=== PATIENT | female | born 1970 | race Caucasian/White ===

== ENCOUNTER 2025-01-08 11:53 | Observation (INO) | payer OTHER ==
[2025-01-08] MEDS ORDERED: LORazepam 1 MG/0.5 ML VIAL IV PRN ×2 (12:31)
--- NOTE | 2025-01-08 12:38 | ED ---
General Adult HPI - General Chief complaint: Alcohol Stated complaint: ABD Pain/intoxicated Time Seen by Provider: 01/08/25 12:03 Source: EMS Mode of arrival: EMS Limitations: no limitations - History of Present Illness Initial comments: Dictation was produced using [employer] dictation software. please excuse any grammatical, word or spelling errors. Chief Complaint: 54-year-old female from [place] for alcohol detoxification History of Present Illness: Patient 54-year-old alcoholic female drinks approximately 1 pint of liquor daily. States her last alcohol intake was 8 AM this morning. She tried to check in at [facility] and was refused due to high levels of alcohol. She states that she did complain of abdominal pain. States that she started to feel little antsy and needs to drink. The ROS documented in this emergency department record has been reviewed and confirmed by me. Those systems with pertinent positive or negative responses have been documented in the HPI. All other systems are other negative and/or noncontributory. - Related Data Allergies Allergy/AdvReac Type Severity Reaction Status Date / Time No Known Allergies Allergy Verified 01/08/25 12:01 Review of Systems ROS Statement: Those systems with pertinent positive or pertinent negative responses have been documented in the HPI. ROS Other: All systems not noted in ROS Statement are negative. Past Medical History Past Medical History: Unable to Obtain History of Any Multi-Drug Resistant Organisms: Unobtainable Past Surgical History: Unable to Obtain Smoking Status: Unknown if ever smoked Past Alcohol Use History: Unable to Obtain Past Drug Use History: Unable to Obtain General Exam - General Exam Comments Initial Comments: PHYSICAL EXAM: General Impression: Alert and oriented x3, not in acute distress HEENT: Normocephalic atraumatic, extra-ocular movements intact, pupils equal and reactive to light bilaterally, mucous membranes moist. Cardiovascular: Heart regular rate and rhythm Chest: Able to complete full sentences, no retractions, no tachypnea Abdomen: abdomen soft, non-tender, non-distended, no organomegaly Musculoskeletal: Pulses present and equal in all extremities, no peripheral edema Motor: no focal deficits noted Neurological: CN II-XII grossly intact, no focal motor or sensory deficits noted Skin: Intact with no visualized rashes Psych: Normal affect and mood Limitations: no limitations Course Vital Signs 01/08/25 01/08/25 11:55 13:58 Temperature 97.9 F Pulse Rate 87 102 H Respiratory 18 18 Rate Blood Pressure 115/63 120/69 O2 Sat by Pulse 97 90 L Oximetry EKG Findings - EKG Comments: EKG Findings:: My EKG interpretation: Ventricular rate 81, sinus rhythm, TX interval 153, QRS 84, QTc 418. No TX prolongation, no QTC prolongation, no ST or T-wave changes noted. Overall, this EKG is unremarkable Medical Decision Making - Medical Decision Making Was pt. sent in by a medical professional or institution (, PA, FUR WEIGHER, urgent care, hospital, or [facility]...) When possible be specific @ -No Did you speak to anyone other than the patient for history (EMS, parent, family, police, friend...)? What history was obtained from this source @ -No Did you review nursing and triage notes (agree or disagree)? Why? @ -I reviewed and agree with nursing and triage notes Were old charts reviewed (outside hosp., previous admission, EMS record, old EKG, old radiological studies, urgent care reports/EKG's, [facility] records)? Report findings @ -No old charts were reviewed Differential Diagnosis (chest pain, altered mental status, abdominal pain women, abdominal pain men, vaginal bleeding, musculoskeletal, weakness, fever, dyspnea, syncope, headache, dizziness, GI bleed, back pain, seizure, CVA, palpatations, mental health)? @ -Not applicable EKG interpreted by me (3pts min.). @ -None done X-rays interpreted by me (1pt min.). @ -None done CT interpreted by me (1pt min.). @ -None done U/S interpreted by me (1pt. min.). @ -None done What testing was considered but not performed or refused? (CT, X-rays, U/S, labs)? Why? @ -None What meds were considered but not given or refused? Why? @ -None Was smoking cessation discussed for >3mins.? @ -No Were there social determinants of health that impacted care today? How? (Homelessness, low income, unemployed, alcoholism, drug addiction, transportation, low edu. Level, literacy, decrease access to med. care, alf, rehab)? @ -No Was there de-escalation of care discussed even if they declined (Discuss DNR or withdrawal of care, Hospice)? DNR status @ -No What co-morbidities impacted this encounter? (DM, HTN, Smoking, COPD, CAD, Cancer, CVA, ARF, Chemo, Hep., AIDS, mental health diagnosis, sleep apnea, morbid obesity)? @ -None Was patient admitted / discharged? Hospital course, mention meds given and route, prescriptions, significant lab abnormalities, going to OR and other pertinent info. @ -54-year-old female presents to the emergency department for inpatient EtOH withdrawal treatment. Vital signs stable. Patient last alcohol intake was 8 AM. Laboratory evaluation obtained. Lactic acid was 3.3 alcohol of 298. Patient given some Ativan. Patient alcohol intoxicated. Patient will be admitted for inpatient alcohol withdrawal treatment. Case discussed with hospitalist for admission. Did you discuss the management of the patient with other professionals (professionals i.e. , PA, FUR WEIGHER, lab, RT, psych nurse, social research assistant, department traffic freight router, teacher, vessel traffic officer, case sealer)? Give summary @ -See above Was critical care preformed (if so, how long)? @ -No Undiagnosed new problem with uncertain prognosis? @ -No Drug Therapy requiring intensive monitoring for toxicity (Heparin, Nitro, Insulin, Cardizem)? @ -No Were any procedures done? @ -No Diagnosis/symptom? Acute, or Chronic, or Acute on Chronic? Uncomplicated (without systemic symptoms) or Complicated (systemic symptoms)? @ -Alcohol intoxication, alcohol withdrawal Side effects of treatment? @ -No Exacerbation, Progression, or Severe Exacerbation? @ -No Poses a threat to life or bodily function? How? (Chest pain, USA, AL, pneumonia, PE, COPD, DKA, ARF, appy, cholecystitis, CVA, Diverticulitis, Homicidal, Suicidal, threat to staff... and all critical care pts) @ -yes - Lab Data Result diagrams: 01/08/25 12:30 01/08/25 12:30 Lab Results 01/08/25 01/08/25 01/08/25 Range/Units 12:30 12:30 12:30 WBC 5.10 (4.50-10.00) 10*3/uL RBC 4.15 (4.10-5.20) 10*6/uL Hgb 13.5 (12.0-15.0) g/dL Hct 38.4 (37.2-46.3) % MCV 92.5 (80.0-97.0) fL MCH 32.5 H (27.0-32.0) pg MCHC 35.2 (32.0-37.0) g/dL Plt Count (140-440) 10*3/uL MPV 9.2 L (9.5-12.2) fL Immature Gran % (Auto) 0.4 % Neutrophils % 54.8 % Lymphocytes % 37.5 % Monocytes % 6.1 % Eosinophils % 0.4 % Basophils % 0.8 % Immature Gran # 0.02 (0.00-0.04) 10*3/uL Neutrophils # 2.80 (1.80-7.70) 10*3/uL Lymphocytes # 1.91 (0.90-5.00) 10*3/uL Monocytes # 0.31 (0.20-1.00) 10*3/uL Eosinophils # 0.02 L (0.04-0.35) 10*3/uL Basophils # 0.04 (0.00-0.10) 10*3/uL Manual Slide Review Performed Immature Plt Fraction 2.3 (1.1-6.1) % RBC Morphology Normal Sodium 143 (137-145) mmol/L Potassium 3.6 (3.5-5.1) mmol/L Chloride 103 (98-107) mmol/L Carbon Dioxide 24 (22-30) mmol/L Anion Gap 16 mmol/L BUN 9 (7-17) mg/dL Creatinine 0.63 (0.52-1.04) mg/dL Est GFR (CKD-EPI)AfAm >90 (>60 ml/min/1.73 sqM) Est GFR (CKD-EPI)NonAf >90 (>60 ml/min/1.73 sqM) Glucose 147 H (74-99) mg/dL Lactic Ac Sepsis Rflx Plasma Lactic Acid José Miguel 3.3 H* (0.7-2.0) mmol/L Calcium 9.5 (8.4-10.2) mg/dL Magnesium 2.1 (1.6-2.3) mg/dL Total Bilirubin 0.4 (0.2-1.3) mg/dL AST 43 H (14-36) U/L ALT 26 (4-34) U/L Alkaline Phosphatase 84 (38-126) U/L Total Protein 7.0 (6.3-8.2) g/dL Albumin 4.6 (3.5-5.0) g/dL Lipase 209 (23-300) U/L Serum Alcohol 298 H* mg/dL 01/08/25 Range/Units 14:02 WBC (4.50-10.00) 10*3/uL RBC (4.10-5.20) 10*6/uL Hgb (12.0-15.0) g/dL Hct (37.2-46.3) % MCV (80.0-97.0) fL MCH (27.0-32.0) pg MCHC (32.0-37.0) g/dL Plt Count (140-440) 10*3/uL MPV (9.5-12.2) fL Immature Gran % (Auto) % Neutrophils % % Lymphocytes % % Monocytes % % Eosinophils % % Basophils % % Immature Gran # (0.00-0.04) 10*3/uL Neutrophils # (1.80-7.70) 10*3/uL Lymphocytes # (0.90-5.00) 10*3/uL Monocytes # (0.20-1.00) 10*3/uL Eosinophils # (0.04-0.35) 10*3/uL Basophils # (0.00-0.10) 10*3/uL Manual Slide Review Immature Plt Fraction (1.1-6.1) % RBC Morphology Sodium (137-145) mmol/L Potassium (3.5-5.1) mmol/L Chloride (98-107) mmol/L Carbon Dioxide (22-30) mmol/L Anion Gap mmol/L BUN (7-17) mg/dL Creatinine (0.52-1.04) mg/dL Est GFR (CKD-EPI)AfAm (>60 ml/min/1.73 sqM) Est GFR (CKD-EPI)NonAf (>60 ml/min/1.73 sqM) Glucose (74-99) mg/dL Lactic Ac Sepsis Rflx Y Plasma Lactic Acid José Miguel (0.7-2.0) mmol/L Calcium (8.4-10.2) mg/dL Magnesium (1.6-2.3) mg/dL Total Bilirubin (0.2-1.3) mg/dL AST (14-36) U/L ALT (4-34) U/L Alkaline Phosphatase (38-126) U/L Total Protein (6.3-8.2) g/dL Albumin (3.5-5.0) g/dL Lipase (23-300) U/L Serum Alcohol mg/dL Disposition Clinical Impression: Alcoholic intoxication Disposition: ADMITTED IP TO THIS HOSP Condition: Fair Referrals: [facility] [NON-STAFF] - 1-2 days (Contact a primary care office to become established with a provider.) [facility] [NON-STAFF] - 1-2 days None,Stated [Primary Care Provider] - 1-2 days Forms: PH Area PCPs Decision Time: 16:10
[2025-01-08] MEDS: LORazepam 1 MG/0.5 ML VIAL IV STA (12:42)
[2025-01-08 13:16] LABS: ALT 26 U/L (4-34); AST 43 U/L (14-36); African American GFR (CKD) >90 (>60 ml/min/1.73 sqM); Albumin 4.6 g/dL (3.5-5.0); Alkaline Phosphatase 84 U/L (38-126); Anion Gap 16 mmol/L; Blood Urea Nitrogen 9 mg/dL (7-17); Calcium 9.5 mg/dL (8.4-10.2); Carbon Dioxide 24 mmol/L (22-30); Chloride 103 mmol/L (98-107); Glucose 147 mg/dL (74-99); Lipase 209 U/L (23-300); Magnesium 2.1 mg/dL (1.6-2.3); Non-African American GFR(CKD) >90 (>60 ml/min/1.73 sqM); Potassium 3.6 mmol/L (3.5-5.1); Sodium 143 mmol/L (137-145); Total Bilirubin 0.4 mg/dL (0.2-1.3)
[2025-01-08 13:24] LABS: Alcohol 298 mg/dL
[2025-01-08 14:19] LABS: Basophils # (A) 0.04 10*3/uL (0.00-0.10); Basophils % (A) 0.8 %; Eosinophils # (A) 0.02 10*3/uL (0.04-0.35); Eosinophils % (A) 0.4 %; HCT 38.4 % (37.2-46.3); HGB 13.5 g/dL (12.0-15.0); Immature Platelet Fraction 2.3 % (1.1-6.1); Lymphocytes # (A) 1.91 10*3/uL (0.90-5.00); Lymphocytes % (A) 37.5 %; MCH 32.5 pg (27.0-32.0); MCHC 35.2 g/dL (32.0-37.0); MCV 92.5 fL (80.0-97.0); Mean Platelet Volume 9.2 fL (9.5-12.2); Monocytes # (A) 0.31 10*3/uL (0.20-1.00); Monocytes % (A) 6.1 %; Neutrophils % (A) 54.8 %; RBC 4.15 10*6/uL (4.10-5.20); RDW 12.6 % (11.5-14.5)
[2025-01-08 15:12] LABS: RBC Morphology Normal
[2025-01-08] MEDS ORDERED: NALOXONE 0.4 MG/ML 1 ML VIAL IV PRN (16:08)
--- NOTE | 2025-01-08 17:40 | XR ---
EXAMINATION TYPE: XR chest 1V portable DATE OF EXAM: 01/08/2025 5:17 PM COMPARISON: Chest radiographs from CLINICAL INDICATION: Female, 54 years old with history of chf; TECHNIQUE: XR chest 1V portable Frontal view of the chest. FINDINGS: Lungs/Pleura: There is no evidence of pleural effusion, focal consolidation, or pneumothorax. Pulmonary vascularity: Unremarkable. Heart/mediastinum: Cardiomediastinal silhouette is unremarkable. Musculoskeletal: No acute osseous pathology. Other findings: None IMPRESSION: No acute cardiopulmonary disease/process. [facility], , 01/08/2025 5:38 PM
--- NOTE | 2025-01-08 18:14 | CT ---
EXAMINATION TYPE: CT brain wo con DATE OF EXAM: 01/08/2025 5:32 PM COMPARISON: None. CLINICAL INDICATION: Female, 54 years old with history of fall, Fall, ETOH. TECHNIQUE: Brain: Axial CT images of the brain were obtained with coronal and sagittal reformats created and rev iewed. Contrast used: None. Oral contrast used: None. CT DLP: 1155.4 mGycm, Automated exposure control for dose reduction was used. FINDINGS: Brain: Extra-axial spaces: No abnormal extra-axial fluid collections. Ventricular system: Within normal limits Cerebral parenchyma: No acute intraparenchymal hemorrhage or mass effect. The mustafa-white junction is well differentiated. Cerebellum: Unremarkable. Mass effect: No evidence of midline shift. Intracranial vasculature: unremarkable Soft tissues: Normal. Calvarium/osseous structures: No depressed skull fracture. Paranasal sinuses and mastoid air cells: Mild scattered paranasal sinus disease. Visualized orbits: Orbital contents are intact. IMPRESSION: No acute intracranial process. [facility], , 01/08/2025 6:12 PM
[2025-01-08] MEDS: SODIUM CHLORIDE 0.9% 1,000 ML IV SCH (18:41)
[2025-01-08] MEDS: PANTOPRAZOLE 40 MG TABLET PO SCH (18:43)
[2025-01-08 19:28] LABS: Influenza A Not Detected (Not Detectd); Influenza B Not Detected (Not Detectd); RSV Not Detected (Not Detectd)
[2025-01-08] MEDS: LORazepam 1 MG/0.5 ML VIAL IV PRN (19:36)
[2025-01-08] MEDS: NICOTINE 21MG/24HR PATCH TRANSDERM STA (19:44)
[2025-01-08] MEDS: QUEtiapine 50 MG TAB PO SCH (22:47)
[2025-01-08] MEDS: PANTOPRAZOLE 40 MG/10 ML VIAL IVP SCH (22:47)
[2025-01-09 02:00] LABS: Basophils # (A) 0.04 10*3/uL (0.00-0.10); Basophils % (A) 0.8 %; Eosinophils # (A) 0.02 10*3/uL (0.04-0.35); Eosinophils % (A) 0.4 %; HCT 38.9 % (37.2-46.3); HGB 13.6 g/dL (12.0-15.0); Lymphocytes # (A) 1.83 10*3/uL (0.90-5.00); Lymphocytes % (A) 38.4 %; MCH 32.7 pg (27.0-32.0); MCV 93.5 fL (80.0-97.0); Mean Platelet Volume 8.9 fL (9.5-12.2); Monocytes # (A) 0.36 10*3/uL (0.20-1.00); Monocytes % (A) 7.5 %; Neutrophils # (A) 2.51 10*3/uL (1.80-7.70); Neutrophils % (A) 52.7 %; Platelet Count 173 10*3/uL (140-440); RBC 4.16 10*6/uL (4.10-5.20); RDW 12.3 % (11.5-14.5); WBC 4.77 10*3/uL (4.50-10.00)
[2025-01-09 02:31] LABS: ALT 26 U/L (4-34); AST 41 U/L (14-36); African American GFR (CKD) >90 (>60 ml/min/1.73 sqM); Albumin 4.3 g/dL (3.5-5.0); Albumin/Globulin Ratio 1.8; Alkaline Phosphatase 91 U/L (38-126); Anion Gap 9 mmol/L; Blood Urea Nitrogen 7 mg/dL (7-17); Calcium 9.1 mg/dL (8.4-10.2); Carbon Dioxide 25 mmol/L (22-30); Chloride 105 mmol/L (98-107); Globulin 2.4 g/dL; Glucose 96 mg/dL (74-99); Non-African American GFR(CKD) >90 (>60 ml/min/1.73 sqM); Potassium 3.5 mmol/L (3.5-5.1); Sodium 139 mmol/L (137-145); Total Bilirubin 0.8 mg/dL (0.2-1.3); Total Protein 6.7 g/dL (6.3-8.2)
--- NOTE | 2025-01-09 04:40 | HP ---
HISTORY AND PHYSICAL CHIEF COMPLAINT: Alcohol intoxication. HISTORY OF PRESENT ILLNESS: This is a 54-year-old woman with a past medical history of multiple medical problems including chronic alcoholism, presented, referred from [facility] because acute alcohol intoxication, alcohol was 298. The patient apparently drank half a pint this morning. The patient also had history of recent falls and complained headache and bump in the headache also. There is no history of fever, rigors, or chills. PAST MEDICAL HISTORY: Alcoholism. Rest of the history is not able to be obtained. MEDICATIONS: Unknown at this time. ALLERGIES: None. FAMILY HISTORY: No history of heart disease or strokes. SOCIAL HISTORY: History of alcohol. REVIEW OF SYSTEMS: Fourteen-point review of systems negative except as mentioned earlier. PHYSICAL EXAMINATION: VITAL SIGNS: Pulse is 102, blood pressure 120/69, and respirations 18. HEENT: Conjunctivae normal. NECK: No jugular venous distention. CARDIOVASCULAR: S1, S2 muffled. ABDOMEN: Soft, nontender. LEGS: No edema. No swelling. NERVOUS SYSTEM: Diffusely weak. Some tremors. LABORATORY DATA: Reviewed. ASSESSMENT: 1. Acute alcoholism and early withdrawal. 2. Headaches for evaluation and fall. 3. Elevated plasma lactic acid. 4. Elevated random glucose. RECOMMENDATIONS AND DISCUSSION: This 54-year-old woman presented with multiple complex medical issues. We will monitor the patient closely. [facility] protocol. Basic labs, chest x-ray, CT of the brain to rule out the possibility of any concussion or any intracranial bleeding. Prognosis is guarded because of multiple complex medical issues. Further recommendations to follow. See orders for details. MMODL / IJN: [id number] /
[2025-01-09] MEDS: NALTREXONE HCL 50 MG TAB PO SCH (08:59)
[2025-01-09] MEDS: ESCITALOPRAM 20 MG TAB PO SCH (09:00)
[2025-01-09] MEDS: chlordiazePOXIDE 25 MG CAP PO SCH (15:51)
[2025-01-09] MEDS: cloNIDine HCL 0.1 MG TAB PO SCH (15:52)
--- NOTE | 2025-01-10 02:52 | PN ---
PROGRESS NOTE DATE OF SERVICE: 01/09/2025 This is a 54-year-old woman admitted with alcohol intoxication. She still has tremors. No chest pain. No palpitation. PHYSICAL EXAMINATION: VITAL SIGNS: Pulse 117, blood pressure 114/86, respirations 16. CHEST: Bilateral scattered rhonchi and crackles. ABDOMEN: Soft, nontender. LABORATORY DATA: Reviewed. ASSESSMENT: 1. Acute alcoholic intoxication and acute alcoholic withdrawal and delirium tremens. 2. Headaches. 3. Elevated plasma lactic acid. 4. Elevated random glucose. RECOMMENDATIONS: Recommend to continue current management and treatment. Otherwise add Librium and clonidine. Further recommendations to follow. MMODL / IJN: [id number] /
[2025-01-10 08:04] LABS: Basophils # (A) 0.02 X 10*3/uL (0.00-0.10); Basophils % (A) 0.4 %; Eosinophils # (A) 0.06 X 10*3/uL (0.04-0.35); Eosinophils % (A) 1.1 %; HCT 41.8 % (37.2-46.3); HGB 14.2 g/dL (12.0-15.0); Lymphocytes # (A) 2.23 X 10*3/uL (0.90-5.00); Lymphocytes % (A) 42.2 %; MCV 94.1 FL (80.0-97.0); Mean Platelet Volume 9.7 FL (9.5-12.2); Monocytes % (A) 7.6 %; NRBC Per 100 WBC 0 X 10*3/uL (0.00-0.01); Neutrophils # (A) 2.56 X 10*3/uL (1.80-7.70); Neutrophils % (A) 48.5 %; Platelet Count 179 X 10*3/uL (140-440); RBC 4.44 X 10*6/uL (4.10-5.20); RDW 12.2 % (11.5-14.5); WBC 5.28 X 10*3/uL (4.50-10.00)
[2025-01-10 08:28] VITALS: BP 117/80; PULSE 63; RESP 17; TEMP 98.4
[2025-01-10 08:36] LABS: ALT 20 U/L (8-44); AST 25 U/L (13-35); Albumin 4.5 g/dL (3.8-4.9); Albumin/Globulin Ratio 1.88 Ratio (1.60-3.17); Alkaline Phosphatase 92 U/L (41-126); BUN/Creat Ratio 10.83 Ratio (12.00-20.00); Blood Urea Nitrogen 6.5 mg/dL (9.0-27.0); Calcium 9.5 mg/dL (8.7-10.3); Carbon Dioxide 23.9 mmol/L (21.6-31.8); Chloride 104 mmol/L (96-109); Globulin 2.4 g/dL (1.6-3.3); Glucose 108 mg/dL (70-110); Potassium 3.4 mmol/L (3.5-5.5); Sodium 143 mmol/L (135-145); Total Bilirubin 0.7 mg/dL (0.3-1.2); Total Protein 6.9 g/dL (6.2-8.2)
[2025-01-10] MEDS: ACETAMINOPHEN TAB 500 MG TAB PO PRN (13:20)
--- NOTE | 2025-01-10 14:42 | DS ---
DISCHARGE SUMMARY FINAL DIAGNOSES: 1. Acute alcohol intoxication, acute alcohol withdrawals, and early delirium tremens. 2. Headaches. 3. Elevated plasma lactic acid, improved. 4. Elevated random glucose. DISCHARGE DISPOSITION: The patient is being discharged in stable and guarded condition. HISTORY OF PRESENT ILLNESS: This 54-year-old woman was admitted with alcohol intoxication and early DTs. Symptomatic treatment, improved significantly. The patient was discharged in stable and guarded prognosis. I recommend to follow up with the primary physician as well as a [facility] also. RECOMMENDATION/DISCUSSION: Continue the home medications and Librium 25 mg p.o. b.i.d. and no alcohol, attend AA and [facility]. MMODL / IJN: [id number] /
== END 2025-01-10 15:12 | disposition home or self-care (01) ==
LOC: EC 11:53 → INTOOBSV 16:09 → 4SSUR 16:09
PROVIDERS: ADMIT Hospitalist; ATTEND Hospitalist
DX: F10.229 Alcohol dependence with intoxication, unspecified (principal); F10.231 Alcohol dependence with withdrawal delirium; R51.9 Headache, unspecified; R29.6 Repeated falls; R74.02 Elevation of levels of lactic acid dehydrogenase [LDH]; R73.09 Other abnormal glucose; Y90.8 Blood alcohol level of 240 mg/100 ml or more
CPT/HCPCS: 96376 ×4; 96375; 96374; 99285; 36415; 93005; 80053 ×3; 83605 ×2; 83690; 83735; 85025 ×3; 80320; 87636; 71045; 70450; G0378 ×2; S4990; J2060 ×3; J2470 ×3